=== PATIENT | male | born 1935 | race Caucasian/White ===

== ENCOUNTER 2023-08-02 08:34 | Emergency (ER) | payer MEDICARE, SELFPAY ==
[2023-08-02 08:47] VITALS: BP 135/69; PULSE 96; RESP 20; TEMP 37.1; O2SAT 96
--- NOTE | 2023-08-02 09:03 | ED.GENADULT ---
HPI - General Adult General Chief complaint: Upper Respiratory Infection Stated complaint: Ear Pain/Sore Throat Source: patient Mode of arrival: ambulatory Limitations: no limitations History of Present Illness HPI narrative: Patient presents for evaluation of sick symptoms for last 10 days. Symptoms include sinus congestion, rhinorrhea, bilateral otalgia, sore throat, chills and headache. No fever, nausea, vomiting, diarrhea, cough or SOB. He is not taking any medication for symptoms. His son is being evaluated here for a cough. Related Data Home Medications Medication Instructions Recorded Confirmed apixaban 2.5 mg tablet (Eliquis) mg 08/02/23 carvedilol 6.25 mg tablet mg 08/02/23 finasteride 5 mg tablet mg 08/02/23 lisinopril 10 mg tablet mg 08/02/23 pravastatin 20 mg tablet mg 08/02/23 quinapril 20 mg tablet mg 08/02/23 spironolactone 25 mg tablet mg 08/02/23 tamsulosin 0.4 mg capsule mg PO 08/02/23 Allergies Allergy/AdvReac Type Severity Reaction Status Date / Time No Known Allergies Allergy Verified 08/02/23 08:56 Review of Systems Review of Systems: CONSTITUTIONAL: Denies fever, chills, or sweats. EYES: Denies visual changes, redness, or discharge. ENT: Reports bilateral otalgia, sore throat, clear rhinorrhea CARDIOVASCULAR: Denies chest pain, palpitations, or edema. RESPIRATORY: Denies cough or dyspnea. GASTROINTESTINAL: Denies abdominal pain, nausea, vomiting, or diarrhea. GENITOURINARY: Denies dysuria or hematuria. SKIN: Denies rash or itching. MUSCULOSKELETAL: Denies back pain, joint pain, or myalgia. NEUROLOGIC: Reports headache. Denies numbness, dizziness, or weakness. PSYCHIATRIC: Denies anxiety or depression. [facility] Past Medical History Medical History (Updated 08/02/23 @ 09:35 by VICTO RHUGO Vargas, WIL) DVT (deep venous thrombosis) History of BPH Hypertension Surgical History Surgical History No pertinent past surgical history Family History Family History Mother Family history non-contributory Social History Social History Substance use: never Living arrangements: with family Gender identity (if verbalized by the patient): Male Sexual Orientation (if Verbalized by the Patient): Straight or Heterosexual Spiritual care concerns: No Exam Narrative: GENERAL: Well-appearing, well-nourished, and in no acute distress. HEAD: Normocephalic, atraumatic. EYES: PERRLA and EOMI. ENT: Nares clear, no rhinorrhea or epistaxis. Mucous membranes moist. Oropharynx without tonsillar hypertrophy exudate or other lesions. Posterior pharyngeal erythema present. Bilateral tympanic membranes are erythematous NECK: Supple. No adenopathy or masses. No carotid bruits or JVD CHEST: Clear to auscultation. No respiratory distress. No wheezes rales or rhonchi HEART: Regular rate and rhythm. No murmur heard. Normal peripheral pulses. ABDOMEN: Soft, nontender, nondistended, normal active bowel sounds. EXTREMITIES: Normal range of motion. No edema. SKIN: Warm, dry, no rash. NEURO: No focal deficits. Alert and oriented x3. PSYCH: Normal mood and affect. Course Course Emergency Course: This is an 88-year-old male who presented for evaluation of sick symptoms. COVID, influenza, strep were negative. However son's test was positive for strep. Will treat with Augmentin. Increase hydration. [id number] agents for symptom management. Follow up with primary provider. Go to the ER for worsening symptoms. Patient in agreement plan of care. Level of Care: Express Care Visit Vital Signs Vital signs: Vital Signs Temperature 37.1 C 08/02/23 08:47 Pulse Rate 96 08/02/23 08:47 Respiratory Rate 20 08/02/23 08:47 Blood Pressure 135/69 08/02/23 08:47 Pulse Oximetry 96
== END 2023-08-02 09:40 | disposition home or self-care (01) ==
PROVIDERS: Emergency Provider Nurse Practitioner; PCP Internal Medicine
DX: J02.9 Acute pharyngitis, unspecified (principal); I10 Essential (primary) hypertension; Z86.718 Personal history of other venous thrombosis and embolism; Z79.01 Long term (current) use of anticoagulants; Z79.899 Other long term (current) drug therapy; Z20.822 Contact with and (suspected) exposure to COVID-19
CPT/HCPCS: 87081; 87426; 87804; 87880; 99213; C9803; G0463